=== PATIENT | female | born 1985 | race Caucasian/White ===

== ENCOUNTER → 2017-12-12 08:55 | Outpatient (CLI) | payer OTHER, SELFPAY ==
--- NOTE | 2017-12-12 09:07 | XR_ITS ---
XR foot RT min 3V HISTORY: ITS.REASON: RT FOOT PUNCTURE ORDERING PHYSICIAN: Antionette Verdugo DPM PATIENT AGE: 32 years COMPARISON: None FINDINGS: No fracture or dislocation. No lytic or blastic change. There is normal mineralization.. The joint spaces are well-preserved. No significant degenerative/arthritic changes. No erosive changes evident. No radio opaque foreign bodies evident. There is sclerosis involving the mid to distal aspect of the distal phalanx of the great toe. IMPRESSION: 1. No radio opaque foreign body or soft tissue gas. 2. Sclerosis of the distal phalanx of the great toe. This is nonspecific and is well-circumscribed possibly related to bone island or an old fracture. Consider follow-up to confirm stability
--- NOTE | 2017-12-12 09:07 | XR_ITS ---
XR foot LT min 3V HISTORY: Foot pain, puncture wound ITS.REASON: COMPARISON ORDERING PHYSICIAN: Antionette Verdugo DPM PATIENT AGE: 32 years COMPARISON: None FINDINGS: No fracture or dislocation. No lytic or blastic change. There is normal mineralization.. The joint spaces are well-preserved. No significant degenerative/arthritic changes. No erosive changes evident. IMPRESSION: Negative, no acute finding
== END ==
PROVIDERS: Visit Provider Podiatrist
DX: S91.331A Puncture wound without foreign body, right foot, initial encounter (principal)
CPT/HCPCS: 73630

== ENCOUNTER → 2021-07-07 14:31 | Outpatient (CLI) | payer MEDICAID, SELFPAY ==
--- NOTE | 2021-07-07 14:35 | XR_ITS ---
FINAL REPORT CLINICAL HISTORY: Inclusion Cyst of Right Foot COMPARISON: December 12, 2017 FINDINGS: RIGHT FOOT Three weight-bearing views demonstrate no acute fracture or dislocation. There is a sclerotic focus of the 1st distal phalanx that may represent a bone island which appears stable. There is focal soft tissue fullness at the plantar lateral midfoot measuring 29 mm worrisome for a mass. IMPRESSION: Focal soft tissue fullness at the plantar lateral midfoot worrisome for mass. If indicated MRI could further evaluate. Reviewed, Interpreted and Dictated by Lucio Pan III, MD Transcribed by Enedelia Hardy Authenticated by Lucio Pan III, MD on 07/07/2021 03:41:54 PM [facility]
== END ==
PROVIDERS: PCP Nurse Practitioner Family; Visit Provider Podiatrist
DX: D21.21 Benign neoplasm of connective and other soft tissue of right lower limb, including hip (principal)
CPT/HCPCS: 73630

== ENCOUNTER → 2021-07-14 12:00 | Outpatient (CLI) | payer MEDICAID, SELFPAY | LOC: LAB 07-29 12:57 → LAB.DROPOF 07-29 12:59 | PROVIDERS: Visit Provider Podiatrist | DX: D36.7 Benign neoplasm of other specified sites (principal); M79.671 Pain in right foot; L72.0 Epidermal cyst | CPT/HCPCS: 87070; 87205 ==